=== PATIENT | female | born 2000 ===

== ENCOUNTER 2024-04-01 13:29 | Emergency (ER) | payer OTHER, SELFPAY ==
[2024-04-01 13:44] VITALS: BP 115/67; PULSE 74; RESP 16; TEMP 37.1; O2SAT 99; BMI 22.1
--- NOTE | 2024-04-01 16:00 | PC.NURSE ---
Patient not present in [facility] when called. Registration noted patient leaving at [id number].
--- NOTE | 2024-04-25 11:01 | ED.NECK ---
HPI - Neck Pain/Injury <JOHN Hernandez - Last Filed: 04/25/24 11:02> General Chief Complaint: Neck Pain/Injury Stated Complaint: neck injury Mode of arrival: Family Vehicle History of Present Illness HPI Narrative: Patient left without being seen. Related Data Previous Rx's Medication Instructions Recorded baclofen 10 mg tablet 10 mg PO TID muscle spasms 10 days 04/06/24 #30 tabs lidocaine 5 % topical patch 1 patch topical DAILY #15 ea 04/06/24 Allergies Allergy/AdvReac Type Severity Reaction Status Date / Time codeine Allergy Verified 04/06/24 15:36 Patient History <JOHN Hernandez - Last Filed: 04/25/24 11:02> Social History Smoking Status: Never smoker Smoking Status: Never smoker alcohol intake frequency: 0-2 drinks per day Substance Use Type: marijuana Exam <JOHN Hernandez - Last Filed: 04/25/24 11:02> Initial Vital Signs Initial Vital Signs: Vital Signs Temperature 98.7 F 04/01/24 13:44 Pulse Rate 74 04/01/24 13:44 Respiratory Rate 16 04/01/24 13:44 Blood Pressure 115/67 04/01/24 13:44 Pulse Oximetry 99 04/01/24 13:44 Oxygen Delivery Method Room Air 04/01/24 13:44 <Bora Lopez DO - Last Filed: 04/25/24 12:51> Initial Vital Signs Initial Vital Signs: Vital Signs Temperature 98.7 F 04/01/24 13:44 Pulse Rate 74 04/01/24 13:44 Respiratory Rate 16 04/01/24 13:44 Blood Pressure 115/67 04/01/24 13:44 Pulse Oximetry 99 04/01/24 13:44 Oxygen Delivery Method Room Air 04/01/24 13:44 MDM - Neck Pain/Injury <Bora Lopez DO - Last Filed: 04/25/24 12:51> MDM Narrative Medical decision making narrative: Patient left without being seen Discharge Plan Departure Patient Disposition: Left Without Being Seen Clinical Impression: Patient left without being seen Prescriptions: No Action baclofen 10 mg tablet 10 mg PO TID 10 Days Qty: 30 1RF lidocaine 5 % adhesive patch,medicated 1 patch topical DAILY Qty: 15 2RF Rx Instructions: leave on most painful area for up to 12 hrs
== END 2024-04-01 15:44 | disposition left against medical advice (07) ==
PROVIDERS: Emergency Provider Registered Nurse
CPT/HCPCS: 99281

== ENCOUNTER 2024-04-06 15:20 | Emergency (ER) | payer OTHER, SELFPAY ==
[2024-04-06 15:36] VITALS: BP 125/79; PULSE 65; RESP 16; TEMP 36.3; O2SAT 100; BMI 22.4
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
[2024-04-06 19:07] VITALS: BP 121/68; PULSE 67; RESP 18; TEMP 36.7; O2SAT 100
== END 2024-04-06 19:08 | disposition home or self-care (01) ==
PROVIDERS: Emergency Provider Student in an Organized Health Care Education/Training Program
DX: M54.12 Radiculopathy, cervical region (principal); M62.830 Muscle spasm of back
CPT/HCPCS: 99281; 99283

== ENCOUNTER 2024-06-26 14:53 | Emergency (ER) | payer OTHER, SELFPAY ==
[2024-06-26 15:02] VITALS: BP 121/74; PULSE 68; RESP 18; TEMP 36.3; O2SAT 100; BMI 21.0
--- NOTE | 2024-06-26 17:12 | PC.NURSE ---
Pt reports new onset of numbness/tingling to bilateral hands for past 1 month. Decreased tool chaser strength in LEFT hand.
--- NOTE | 2024-06-26 18:30 | ED.GENADULT ---
HPI - General Adult General Chief complaint: Extremity Injury, Upper Stated complaint: Back/Shoulder Pain Time Seen by Provider: 06/26/24 17:26 Source: patient Mode of arrival: Ambulatory Limitations: no limitations History of Present Illness HPI narrative: 23-year-old patient who is here for evaluation several months of upper back and neck discomfort. Patient states that has been on muscle relaxers in the past that have helped the symptoms. Patient thinks that it is weightlifting that maybe he was exacerbated the symptoms today. Occasionally has tingling in the fingers. No fevers. Has been on anti-inflammatories in the back. No skin changes. No specific trauma that caused the increase in discomfort today. Patient has been out of muscle relaxers for the past month. Related Data Previous Rx's Medication Instructions Recorded baclofen 10 mg tablet 10 mg PO TID muscle spasms 10 days 04/06/24 #30 tabs lidocaine 5 % topical patch 1 patch topical DAILY #15 ea 04/06/24 cyclobenzaprine 10 mg tablet 10 mg PO TID PRN muscle spasm #20 06/26/24 tabs Allergies Allergy/AdvReac Type Severity Reaction Status Date / Time codeine Allergy Verified 04/06/24 15:36 Review of Systems Review of Systems Narrative: See HPI Patient History Social History Smoking Status: Never smoker Smoking Status: Never smoker alcohol intake frequency: 0-2 drinks per day Substance Use Type: marijuana Exam Initial Vital Signs Initial Vital Signs: Vital Signs Temperature 97.4 F L 06/26/24 15:02 Pulse Rate 68 06/26/24 15:02 Respiratory Rate 18 06/26/24 15:02 Blood Pressure 121/74 06/26/24 15:02 Pulse Oximetry 100 06/26/24 15:02 Oxygen Delivery Method Room Air 06/26/24 15:02 Const General: cooperative, comfortable and No ill appearing HENMT Head: normal to inspection and normocephalic Back/Spine/Pelvis Cervical Spine: cervical muscular tenderness and No cervical spinal tenderness Thoracic/Lumbar Spine: paraspinal tenderness, No thoracic spinal tenderness and No lumbar spinal tenderness Skin General: no rashes or lesions noted Neuro General: patient alert, patient awake and moves all extremities Extrem General: capillary refill normal Course Vital Signs Vital signs: Vital Signs - 8 hr 06/26/24 15:02 06/26/24 18:40 Temperature 97.4 F L Pulse Rate 68 69 Respiratory Rate 18 18 Blood Pressure 121/74 115/65 Pulse Oximetry 100 98 Oxygen Delivery Method Room Air Room Air Medical Decision Making MDM Narrative Medical decision making narrative: A very high suspicion that this is muscular in origin. Apparently muscle relaxers have helped in the past. Low suspicion for fracture. No indication for any imaging studies. No skin changes. Was sent home with a prescription for muscle relaxers. Recommended continued physical therapy and follow-up with primary care doctor. Discharge Plan Departure Patient Disposition: Home Clinical Impression: Bilateral thoracic back pain Instructions: DI for Muscle Strain Activity Restrictions/Additional Instructions: I do recommend that you contact your primary care doctor to discuss further treatment such as chiropractic or continued physical therapy. Use the muscle relaxers as needed as directed. Return to the emergency department for new symptoms. Prescriptions: New cyclobenzaprine 10 mg tablet 10 mg PO TID PRN (Reason: muscle spasm) Qty: 20 0RF No Action baclofen 10 mg tablet 10 mg PO TID 10 Days Qty: 30 1RF lidocaine 5 % adhesive patch,medicated 1 patch topical DAILY Qty: 15 2RF Rx Instructions: leave on most painful area for up to 12 hrs Referrals: ProviderLeonard [Primary Care Provider] - Stand Alone Forms: Patient Portal/API
[2024-06-26 18:40] VITALS: BP 115/65; PULSE 69; RESP 18; O2SAT 98
== END 2024-06-26 18:40 | disposition home or self-care (01) ==
PROVIDERS: Emergency Provider Emergency Medicine
DX: M54.2 Cervicalgia (principal); M54.6 Pain in thoracic spine; R20.2 Paresthesia of skin
CPT/HCPCS: 99281; 99283

== ENCOUNTER 2024-07-05 08:15 | Emergency (ER) | payer OTHER, SELFPAY ==
[2024-07-05 08:34] VITALS: BP 151/83; PULSE 87; RESP 16; TEMP 36.8; O2SAT 100; BMI 21.9
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
[2024-07-05] MEDS: HYDROMORPHONE 1 MG INJ IM (09:15)
[2024-07-05] MEDS: BACLOFEN 10 MG TABLET PO (09:15)
[2024-07-05] MEDS: NAPROXEN 250 MG TABLET 500 MG PO (09:15)
--- NOTE | 2024-07-05 10:17 | PC.NURSE ---
Pt came to ED today because of left shoulder and neck pain. 10/10 sharp shooting and spasming. Pt given dilaidid IM, naproxen and baclofen per Dr Mars order. Pt verbalized relief from medication. A&Ox4.
[2024-07-05 10:38] VITALS: BP 152/80; PULSE 80; RESP 18; TEMP 37; O2SAT 100
== END 2024-07-05 10:39 | disposition home or self-care (01) ==
PROVIDERS: Emergency Provider Emergency Medicine
DX: S16.1XXA Strain of muscle, fascia and tendon at neck level, initial encounter (principal); M62.838 Other muscle spasm
CPT/HCPCS: 72125; 96372; 99283; 99284; J1170